=== PATIENT | male | born 2000 | race Caucasian/White ===

== ENCOUNTER 2018-03-24 00:28 | Emergency (ER) | payer SELFPAY ==
[2018-03-24] VITALS (8 sets, daily range): BP systolic 125–132; BP diastolic 69–74; PULSE 63–71; RESP 14–17; TEMP 36.7; O2SAT 97–100; BMI 22.0
--- NOTE | 2018-03-24 00:55 | ED.DCSUM_ITS ---
History of Present Illness Chief Complaint: Suicidal Informant: Patient, Family - mother Narrative: Patient has a long history of feeling depressed, mom states that he went to counseling a year or 2 ago for anger issues but he did not feel that he was getting anything out of the counseling so quit going. Now, anger is not as much the issue as depression and thoughts of suicide. The patient states he does not feel suicidal as much as he does not want to be alive, and since no one will k ill me, the only way to make that happen is to commit suicide, but I do not think I would do that. He does not have a plan. He has chronic insomnia, he has not slept for the past 2 nights or so, he states that it is not uncommon for him and randomly occurs, and typically has trouble getting to sleep because his mind is racing. He uses marijuana on occasion, is a smoker, and occasionally drinks alcohol but no other illicit substances. 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 Makenna, his mother got a notice that he was emotionally distressed, so she went to his home and found him in tears, with his hands in his hair, emotionally distressed, saying that he did not want to be around. The patient states that he does not want to be alive because the world sucks. He states he does not have any recollection of the events at his home makenna. He has no physical complaints at this time. Past Medical History - Allergies and Home Meds Allergies/Adverse Reactions: Allergies No Known Allergies Allergy (Verified 03/24/18 00:29) Primary Care Physician: NOT,DEFINED [NON-STAFF] - Past Medical History: None Lives: Alone Smoking Status: Current every day smoker Alcohol: Occasional Drugs: Marijuana Review of Systems General: Denies: Chills, Fever, Sweats Eyes: Denies: Visual changes - bilaterally, Diplopia ENT: Denies: Rhinorrhea, Sore throat Cardiovascular: Denies: Chest pain, Palpitations Respiratory: Denies: Dyspnea, Cough, Dyspnea on exertion Gastrointestinal: Reports: Abdominal pain - off and on chronically - periumbilical cramping/aching, mild, Vomiting - occasional x years, Diarrhea - occasional x years. Denies: Nausea, Melena, Hematochezia Genitourinary: Denies: Dysuria, Hematuria, Frequency Musculoskeletal: Denies: Neck pain, Back pain, Swelling, Extremity Pain Skin: Denies: Rash, Abscess Neurological: Denies: Headache, Weakness, Numbness Psych: Reports: Depression, Suicidal thoughts, Suicidal ideations. Denies: Anxiety Endocrine: Denies: Heat intolerance, Cold intolerance Hematologic: Denies: Easy bruising, Easy bleeding, Lymphadenopathy Allergy: Denies: Swelling of the mouth, Swelling of the tongue Physical Exam Vital Signs/Narrative: Vital Signs Temp Pulse Resp BP Pulse Ox 03/24/18 00:29 98.0 F 63 16 132/72 H 97 Inital Vital Signs reviewed: Yes General: Well nourished, Well developed Head: Normocephalic, Atraumatic Eyes: Perrl, EOMI. Negative for: Scleral icterus ENT: Moist mucous membranes, No rhinorrhea. Negative for: Nasal congestion, Sinus tenderness Neck: Supple, Nontender, No lymphadenopathy Cardiovascular: Regular rate, Regular rhythm, No murmurs Respiratory: No distress, CTA bilaterally, Chest nontender Abdomen: Soft, Nontender, Nondistended, Normal bowel sounds Back: Nontender, Normal Inspection Extremities: Nontender, No edema Skin: Normal color, No rash Neurological: Alert, Oriented x3, Cranial nerves II-XII grossly intact, Normal Strength, Normal Sensation Psychological: - - Appears insightful. No hallucinations or delusions. Suicidal - see HPI. Flat inappropriate affect compared with his description of his depression. Diagnostic/Tx/Re-eval Laboratory Tests 03/24/18 03/24/18 03/24/18 Range/Units 01:50 00:55 00:55 WBC 6.3 (4.4-11.0) K/mm3 RBC 4.71 (4.6-6.2) M/mm3 Hgb 14.5 (13.0-16.5) g/dl Hct 41.4 (40-54) % MCV 87.9 (80-94) fL MCH 30.8 (27.0-32.0) pg MCHC 35.0 (32-36) g/gl RDW 12.5 (11.6-14.6) % RDW Differential 40.4 (35.1-43.9) fl Plt Count 219 (150-450) K/mm3 MPV 10.4 (6.2-12.0) fl Immature Gran % (Auto) 0.200 (0.0-0.9) % Neut % (Auto) 50.6 (47-70) % Lymph % (Auto) 32.1 (19-41) % [place] % (Auto) 13.9 H (0-10) % Eos % (Auto) 2.7 (0-5) % Baso % (Auto) 0.5 (0-1) % Absolute Neuts (auto) 3.2 (2.0-7.7) X10^3/uL Absolute Lymphs (auto) 2.03 (0.83-4.51) X10^3/ul Total Counted Not Reportable Sodium (136-145) mmol/L Potassium (3.5-5.1) mmol/L Chloride (98-107) mmol/L Carbon Dioxide (21.0-32.0) mmol/L Anion Gap (5-15) BUN (7-18) mg/dL Creatinine (0.70-1.30) mg/dL Estim Creat Clear Calc ml/min Est GFR (MDRD) Af Amer (>60) mL/min Est GFR (MDRD) Non-Af (>60) mL/min BUN/Creatinine Ratio (10-20) RATIO Glucose (74-106) mg/dL Calcium (8.5-10.1) mg/dL Total Bilirubin (0.20-1.00) mg/dL AST (15-37) U/L ALT (16-61) U/L Alkaline Phosphatase (45-117) U/L Total Protein (6.4-8.2) g/dL Albumin (3.2-5.0) g/dL Globulin (2.2-4.2) g/dL Albumin/Globulin Ratio (0.9-2.4) RATIO TSH (0.358-3.74) uIU/mL Urine Opiates Screen NEGATIVE (< 300 ng/mL) Urine Methadone Screen NEGATIVE (< 300 ng/mL) Ur Barbiturates Screen NEGATIVE (< 200 ng/mL) Ur Phencyclidine Scrn NEGATIVE (< 25 ng/mL) Ur Amphetamines Screen NEGATIVE (<1000 ng/mL) U Methamphetamin-MDMA NEGATIVE (< 500 ng/mL) U Benzodiazepines Scrn NEGATIVE (< 200 ng/mL) Urine Cocaine Screen NEGATIVE (< 300 ng/mL) U Cannabinoids Screen POSITIVE H (< 50 ng/mL) Ur Drug Screen Comment Ethyl Alcohol < 3.0 mg/dL 03/24/18 Range/Units 00:55 WBC (4.4-11.0) K/mm3 RBC (4.6-6.2) M/mm3 Hgb (13.0-16.5) g/dl Hct (40-54) % MCV (80-94) fL MCH (27.0-32.0) pg MCHC (32-36) g/gl RDW (11.6-14.6) % RDW Differential (35.1-43.9) fl Plt Count (150-450) K/mm3 MPV (6.2-12.0) fl Immature Gran % (Auto) (0.0-0.9) % Neut % (Auto) (47-70) % Lymph % (Auto) (19-41) % [place] % (Auto) (0-10) % Eos % (Auto) (0-5) % Baso % (Auto) (0-1) % Absolute Neuts (auto) (2.0-7.7) X10^3/uL Absolute Lymphs (auto) (0.83-4.51) X10^3/ul Total Counted Sodium 141 (136-145) mmol/L Potassium 3.5 (3.5-5.1) mmol/L Chloride 108 H (98-107) mmol/L Carbon Dioxide 26.0 (21.0-32.0) mmol/L Anion Gap 7 (5-15) BUN 11 (7-18) mg/dL Creatinine 0.82 (0.70-1.30) mg/dL Estim Creat Clear Calc 155.14 ml/min Est GFR (MDRD) Af Amer 156 (>60) mL/min Est GFR (MDRD) Non-Af 129 (>60) mL/min BUN/Creatinine Ratio 13.5 (10-20) RATIO Glucose 90 (74-106) mg/dL Calcium 8.7 (8.5-10.1) mg/dL Total Bilirubin 0.80 (0.20-1.00) mg/dL AST 16 (15-37) U/L ALT 44 (16-61) U/L Alkaline Phosphatase 87 (45-117) U/L Total Protein 7.5 (6.4-8.2) g/dL Albumin 4.2 (3.2-5.0) g/dL Globulin 3.3 (2.2-4.2) g/dL Albumin/Globulin Ratio 1.3 (0.9-2.4) RATIO TSH 1.02 (0.358-3.74) uIU/mL Urine Opiates Screen (< 300 ng/mL) Urine Methadone Screen (< 300 ng/mL) Ur Barbiturates Screen (< 200 ng/mL) Ur Phencyclidine Scrn (< 25 ng/mL) Ur Amphetamines Screen (<1000 ng/mL) U Methamphetamin-MDMA (< 500 ng/mL) U Benzodiazepines Scrn (< 200 ng/mL) Urine Cocaine Screen (< 300 ng/mL) U Cannabinoids Screen (< 50 ng/mL) Ur Drug Screen Comment Ethyl Alcohol mg/dL - Medical Decision Making Labs are normal, toxicology is negative except for marijuana, which he admits to. He is medically cleared and crisis is contacted for evaluation in the emergency department. Crisis evaluated, they are concerned about him and think he should be transferred for further psychiatric evaluation, to a psychiatric hospital. During their interview, the patient stated that he could kill anybody at any given time. He did not specify anyone in particular that he premeditated harming. However, he has verbalized his desire to try to leave the emergency department. We have alerted security, redirected the patient, he is cooperative at this time. I have pink slipped him to the emergency department until he can be accepted for psychiatric admission. ED Disposition - Plan for ED Patient: Disposition: Acute Care Hospital - Other Chief Complaint: Suicidal Diagnosis: Major depression, Suicidal thoughts Referrals: NOT,DEFINED [NON-STAFF] -
[2018-03-24 01:00] LABS: Absolute Lymphocyte Count 2.03 X10^3/ul (0.83-4.51); Absolute Neutrophil Count 3.2 X10^3/uL (2.0-7.7); Basophil# 0.03 X10^3/uL; Basophil% 0.5 % (0-1); Eosinophil# 0.17 X10^3/uL; Eosinophils% 2.7 % (0-5); Hematocrit 41.4 % (40-54); Hemoglobin 14.5 g/dl (13.0-16.5); Lymphocyte # 2.03 X10^3/ul (4.0); Lymphocyte % 32.1 % (19-41); Mean Corpuscular Hgb 30.8 pg (27.0-32.0); Mean Corpuscular Volume 87.9 fL (80-94); Mean Platelet Vol. 10.4 fl (6.2-12.0); Monocyte# 0.88 X10^3/uL; Monocyte% 13.9 % (0-10); Neutrophil # 3.21 X10^3/uL (2.7-7.7); Neutrophil % 50.6 % (47-70); Platelet Count 219 K/mm3 (150-450); RBC Distribution Width CV 12.5 % (11.6-14.6); RBC Distribution Width SD 40.4 fl (35.1-43.9); Red Blood Count 4.71 M/mm3 (4.6-6.2); White Blood Count 6.3 K/mm3 (4.4-11.0)
[2018-03-24 01:01] LABS: POSITIVE COUNT NO; POSITIVE DIFFERENTIAL NO; POSITIVE MORPHOLOGY NO
[2018-03-24 01:46] LABS: ALB/GLOB Ratio 1.3 RATIO (0.9-2.4); AST(SGOT) 16 U/L (15-37); Alanine Aminotransfer ALT/SGPT 44 U/L (16-61); Albumin, Serum 4.2 g/dL (3.2-5.0); Alkaline Phosphatase 87 U/L (45-117); Anion Gap 7 (5-15); BUN 11 mg/dL (7-18); BUN/Creat Ratio 13.5 RATIO (10-20); Calcium,Total 8.7 mg/dL (8.5-10.1); Chloride 108 mmol/L (98-107); Creatinine, Serum 0.82 mg/dL (0.70-1.30); EST Glomerular Filtration Rate 129 mL/min (>60); Est Glom Filt Rate - Afr Amer 156 mL/min (>60); Estimated Creatinine Clearance 155.14 ml/min; Globulin 3.3 g/dL (2.2-4.2); Glucose 90 mg/dL (74-106); Potassium 3.5 mmol/L (3.5-5.1); Protein, Total 7.5 g/dL (6.4-8.2); Sodium Level 141 mmol/L (136-145); Thyroid Stim Hormone (TSH) 1.02 uIU/mL (0.358-3.74)
[2018-03-24 01:48] LABS: Alcohol, Blood (Medical)-Serum < 3.0 mg/dL
--- NOTE | 2018-03-24 02:04 | ED.RN ---
[facility] CONTACTED. CRISIS STAFF CALLED BACK WILL BE UP SOON POSSIBLE
[2018-03-24 02:07] LABS: Amphetamine Urine VISTA NEGATIVE (<1000 ng/mL); Barbiturate Urine VISTA NEGATIVE (< 200 ng/mL); Benzodiazepine Urine VISTA NEGATIVE (< 200 ng/mL); Cocaine Urine VISTA NEGATIVE (< 300 ng/mL); Ecstacy Urine VISTA NEGATIVE (< 500 ng/mL); Methadone Urine VISTA NEGATIVE (< 300 ng/mL); PCP Urine VISTA NEGATIVE (< 25 ng/mL); THC Urine VISTA POSITIVE (< 50 ng/mL); Vista UDS pH Range 6
--- NOTE | 2018-03-24 05:13 | CT_ITS ---
STUDY: CT BRAIN WITHOUT CONTRAST REASON FOR EXAM: Male, 17 years old. Depression and suicidal RADIATION DOSAGE (If Supplied By Facility): CTDIvol = ( 44.99 ) mGy, DLP = ( 829.85 ) mGycm TECHNIQUE: Transaxial CT imaging of the brain was performed without administration of intravenous contrast material. Individualized dose optimization techniques were used for this CT. COMPARISON: None. FINDINGS: Normal soft tissue structures. Normal calvarium. Normal size ventricles and extra-axial spaces for the patient's age. Normal white matter tracts of the cerebral hemispheres. Normal basal ganglia and thalami. Normal brainstem. Normal cerebellum. There is no intracranial hemorrhage. There are no findings of an acute ischemic infarction. Normal visualized paranasal sinuses. CT/Brain/Head without Contrast IMPRESSION: Normal unenhanced CT scan of the brain. Electronically Signed: Efren Ordoñez MD at 5:51 EST Tel , Service support ,
--- NOTE | 2018-03-24 10:42 | ED.RN ---
PER SANDI WITH CRISIS; IS REVIEWING CHART NOW AND WILL CONTACT US WHEN THEY ACCEPT OR DECLINE PT
--- NOTE | 2018-03-24 10:45 | ED.RN ---
MOTHER GIVEN UPDATE ON PT. STATUS IS [facility] IS REVIEWING HIS CASE AND WE ARE WAITING TO HEAR BACK
--- OUTSIDE RECORDS SUMMARY | 2018-05-17 21:59 | XMS RPT_ITS ---
:2000 Author Organization [facility] Care Team Providers Name Role Phone SHERINE TRUJILLO Attending Unavailable Primay Care Physicia, No Primary Care Unavailable PROBLEMS PROBLEMS No Problem Records FoundPROCEDURES PROCEDURES No Procedure Records FoundRESULTS RESULTS BRAIN/HEAD WITHOUT Observed: 03/24/2018 Status: F Source: [place] CONTRAST 5:14 AM [facility] [place] REPOSITORY [facility] Imaging Services [address] [place] [address] Brain/Head without Contrast MR#: [id number] Acct: [id number] Name: ILYA CARABALLO Rep #: [id number] : 2000 M 17 From: Efren Ordoñez MD PCP: Care Physician, No Primary Status: REG ER Study: Brain/Head without Contrast Date of Exam: 03/24/18 Exam# [id number] Ordering Dr: Sherine Trujillo MD STUDY: CT BRAIN WITHOUT CONTRAST REASON FOR EXAM: Male, 17 years old. Depression and suicidal RADIATION DOSAGE (If Supplied By Facility): CTDIvol = ( 44.99 ) mGy, DLP = ( 829.85 ) mGycm TECHNIQUE: Transaxial CT imaging of the brain was performed without administration of intravenous contrast material. Individualized dose optimization techniques were used for this CT. COMPARISON: None. FINDINGS: Normal soft tissue structures. Normal calvarium. Normal size ventricles and extra-axial spaces for the patient's age. Normal white matter tracts of the cerebral hemispheres. Normal basal ganglia and thalami. Normal brainstem. Normal cerebellum. There is no intracranial hemorrhage. There are no findings of an acute ischemic infarction. Normal visualized paranasal sinuses. CT/Brain/Head without Contrast IMPRESSION: Normal unenhanced CT scan of the brain. Electronically Signed: Efren Ordoñez MD at 5:51 EST Tel , Service support , CC: No Primary Care Physician; SHERINE TRUJILLO MD Electronic Gluing Machine Operator: Signed EMERGENCY DEPARTMENT Observed: 03/24/2018 Status: F Source: [place] SUMMARY 4:19 AM [facility] [place] REPOSITORY [facility] Medical Records Department [address] [place] [address] Emergency Department Summary 03/24/18 0051 MR#: [id number] Acct: [id number] Name: ILYA CARABALLO Rep #: [id number] : 2000 17 From: Sherine Trujillo MD PCP: Care Physician, No Primary Status: REG ER History of Present Illness Chief Complaint: Suicidal Informant: Patient, Family - mother Narrative: Patient has a long history of feeling depressed, mom states that he went to counseling a year or 2 ago for anger issues but he did not feel that he was getting anything out of the counseling so quit going. Now, anger is not as much the issue as depression and thoughts of suicide. The patient states he does not feel suicidal as much as he does not want to be alive, and since no one will kill me, the only way to make that happen is to commit suicide, but I do not think I would do that. He does not have a plan. He has chronic insomnia, he has not slept for the past 2 nights or so, he states that it is not uncommon for him and randomly occurs, and typically has trouble getting to sleep because his mind is racing. He uses marijuana on occasion, is a smoker, and occasionally drinks alcohol but no other illicit substances. 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 Tonight, his mother got a notice that he was emotionally distressed, so she went to his home and found him in tears, with his hands in his hair, emotionally distressed, saying that he did not want to be around. The patient states that he does not want to be alive because the world sucks. He states he does not have any recollection of the events at his home tonight. He has no physical complaints at this time. Past Medical History - Allergies and Home Meds Allergies/Adverse Reactions: Allergies No Known Allergies Allergy (Verified 03/24/18 00:29) Primary Care Physician: NOT,DEFINED [NON-STAFF] - Past Medical History: None Lives: Alone Smoking Status: Current every day smoker Alcohol: Occasional Drugs: Marijuana Review of Systems General: Denies: Chills, Fever, Sweats Eyes: Denies: Visual changes - bilaterally, Diplopia ENT: Denies: Rhinorrhea, Sore throat Cardiovascular: Denies: Chest pain, Palpitations Respiratory: Denies: Dyspnea, Cough, Dyspnea on exertion Gastrointestinal: Reports: Abdominal pain - off and on chronically - periumbilical cramping/aching, mild, Vomiting - occasional x years, Diarrhea - occasional x years. Denies: Nausea, Melena, Hematochezia Genitourinary: Denies: Dysuria, Hematuria, Frequency Musculoskeletal: Denies: Neck pain, Back pain, Swelling, Extremity Pain Skin: Denies: Rash, Abscess Neurological: Denies: Headache, Weakness, Numbness Psych: Reports: Depression, Suicidal thoughts, Suicidal ideations. Denies: Anxiety Endocrine: Denies: Heat intolerance, Cold intolerance Hematologic: Denies: Easy bruising, Easy bleeding, Lymphadenopathy Allergy: Denies: Swelling of the mouth, Swelling of the tongue Physical Exam Vital Signs/Narrative: Vital Signs 03/24/18 00:29 98.0 F 63 16 132/72 H 97 Inital Vital Signs reviewed: Yes General: Well nourished, Well developed Head: Normocephalic, Atraumatic Eyes: Perrl, EOMI. Negative for: Scleral icterus ENT: Moist mucous membranes, No rhinorrhea. Negative for: Nasal congestion, Sinus tenderness Neck: Supple, Nontender, No lymphadenopathy Cardiovascular: Regular rate, Regular rhythm, No murmurs Respiratory: No distress, CTA bilaterally, Chest nontender Abdomen: Soft, Nontender, Nondistended, Normal bowel sounds Back: Nontender, Normal Inspection Extremities: Nontender, No edema Skin: Normal color, No rash Neurological: Alert, Oriented x3, Cranial nerves II-XII grossly intact, Normal Strength, Normal Sensation Psychological: - - Appears insightful. No hallucinations or delusions. Suicidal - see HPI. Flat inappropriate affect compared with his description of his depression. Diagnostic/Tx/Re-eval Laboratory Tests WBC 6.3 (4.4-11.0) K/mm3 - Medical Decision Making Labs are normal, toxicology is negative except for marijuana, which he admits to. He is medically cleared and crisis is contacted for evaluation in the emergency department. Crisis evaluated, they are concerned about him and think he should be transferred for further psychiatric evaluation, to a psychiatric hospital. During their interview, the patient stated that he could kill anybody at any given time. He did not specify anyone in particular that he premeditated harming. However, he has verbalized his desire to try to leave the emergency department. We have alerted security, redirected the patient, he is cooperative at this time. I have pink slipped him to the emergency department until he can be accepted for psychiatric admission. ED Disposition - Plan for ED Patient: Disposition: Acute Care Hospital - Other Chief Complaint: Suicidal Diagnosis: Major depression, Suicidal thoughts Referrals: NOT,DEFINED [NON-STAFF] - What to do if you have Problems For any increased pain, shortness of breath, bleeding, nausea or vomiting, chest pain, or any unexpected problems, contact your Primary Care Provider. Call [facility] ([phone]) or report to the closest Emergency Room. Call 911 if necessary. 03/24/18 0419 <Electronically signed by Sherine Trujillo MD> Date Sherine Trujillo MD Cosigner Signature (If Indicated): Date CC: No Primary Care Physician URINE DRUG SCREEN Collected: 03/24/2018 Status: F Source: [place] ([place]) 1:50 AM [facility] REPOSITORY TYPE CODE TESTS RESULT OUT OF RANGE REFERENCE UNITS LAB L505.0075 TO BE Normal CONFIRMED Result Comment: CONFIRMATORY TESTING FOR ALL POSITIVE URINE DRUG SCREEN RESULTS WILL ONLY BE SENT OUT UPON PHYSICIAN ORDER. VISTA Urine Drug Screen methods provide only preliminary analytical test results. A more specific alternate chemical method must be used in order to obtain a confirmed analytical result. Gas chromatography/mass spectrometery (GC/MS) is the preferred confirmatory method. Clinical consideration and professional judgement should be applied to any drug of abuse test result, particularly when preliminary positive results are used. URINE TCA TESTING MUST BE ORDERED SEPARATELY. USE TEST MNEMONIC: [facility] LAB L505.5005 VISTA UDS PH 6 Normal LAB L505.5015 <1000 ng/mL AMPHETAMINES Normal NEGATIVE LAB L505.5025 < 200 ng/mL BARBITIURATES Normal NEGATIVE LAB L505.5035 < 200 ng/mL BENZODIAZIPINE Normal NEGATIVE LAB L505.5045 < 300 ng/mL COCAINE Normal NEGATIVE LAB L505.5055 < 500 ng/mL ECSTACY Normal NEGATIVE LAB L505.5065 < 300 ng/mL METHADONE Normal NEGATIVE LAB L505.5075 < 300 ng/mL OPIATES Normal NEGATIVE LAB L505.5085 < 25 ng/mL PCP Normal NEGATIVE LAB L505.5095 < 50 High ng/mL THC POSITIVE Performed By: #### L505.5000 #### [facility] [address] [place], [address] CBC W/DIFF, AUTOMATED Collected: 03/24/2018 Status: F Source: [place] 12:55 AM [facility] REPOSITORY TYPE CODE TESTS RESULT OUT OF RANGE REFERENCE UNITS LAB L100.1000 4.4-11.0 K/mm3 Normal WBC 6.3 LAB L100.1200 4.6-6.2 M/mm3 Normal RBC 4.71 LAB L100.1300 13.0-16.5 g/dl Normal HGB 14.5 LAB L100.1400 40-54 % Normal HCT 41.4 LAB L100.1500 80-94 fL Normal MCV 87.9 LAB L100.1600 27.0-32.0 pg Normal MCH 30.8 LAB L100.1700 32-36 g/gl Normal MCHC 35.0 LAB L100.1810 11.6-14.6 % Normal RDW CV 12.5 LAB L100.1820 35.1-43.9 fl Normal RDW SD 40.4 LAB L100.1900 150-450 K/mm3 Normal PLT 219 LAB L100.2000 6.2-12.0 fl Normal MPV 10.4 LAB L100.2100 47-70 % Normal NEUT% 50.6 LAB L100.2200 19-41 % Normal LY% 32.1 LAB L100.2300 0-10 % High MONO% 13.9 LAB L100.2400 0-5 % Normal EO% 2.7 LAB L100.2500 0-1 % Normal BASO% 0.5 LAB L100.2550 0.0-0.9 % Normal IM GRAN % 0.200 Result Comment: IG% - Immature Granulocytes (promyelocytes, myelocytes and metamyelocytes) > 1% indicates that a LEFT SHIFT is Present. LAB L100.2620 2.0-7.7 X10 3/uL Normal Absolute Neut 3.2 LAB L100.2720 0.83-4.51 X10 3/ul Normal Absolute Lymph 2.03 Performed By: #### L100.0100 #### [facility] [address] [place], [address] COMPREHENSIVE METABOLIC Collected: 03/24/2018 Status: F Source: [facility] 12:55 AM [facility] REPOSITORY TYPE CODE TESTS RESULT OUT OF RANGE REFERENCE UNITS LAB L501.0100 74-106 mg/dL Normal GLU 90 Result Comment: Please note revised GLUCOSE reference range effective 2017. LAB L501.1000 7-18 mg/dL Normal BUN 11 LAB L501.1100 0.70-1.30 mg/dL Normal CREAT,SERUM 0.82 Result Comment: The validity of the calculated GFR AND GFRAA in patients over 70 years has not been determined. Clinical correlation is essential. LAB L501.1110 >60 mL/min Normal EST GFR 129 Result Comment: Non- GFR Calc LAB L501.1115 >60 mL/min Normal EST GFR - AA 156 Result Comment: GFR Calc LAB L501.1255 ml/min Normal Estimated CRCL 155.14 LAB L501.1300 10-20 RATIO BUN/CRE Normal 13.5 LAB L501.1500 6.4-8. g/dL 2 T PROT Normal 7.5 LAB L501.1800 3.2-5. g/dL 0 ALB Normal 4.2 LAB L501.1950 2.2-4. g/dL 2 GLOB Normal 3.3 LAB L501.2000 0.9-2. RATIO 4 A/G Normal 1.3 LAB L501.2200 8.5-10 mg/dL .1 CA Normal 8.7 LAB L501.4100 15-37 U/L AST Normal 16 LAB L501.4305 45-117 U/L ALK P Normal 87 LAB L501.4405 16-61 U/L ALT Normal 44 LAB L501.4600 0.20-1 mg/dL .00 T BILI Normal 0.80 LAB L501.5300 136-14 mmol/L 5 NA Normal 141 LAB L501.5600 3.5-5. mmol/L 1 K Normal 3.5 LAB L501.5900 98-107 mmol/L High CL 108 LAB L501.6100 21.0-3 mmol/L 2.0 CO2 Normal 26.0 LAB L501.6200 5-15 GAP Normal 7 Performed By: #### L500.4050, L501.9520 #### [facility] [address] [place], [place], [id number] THYROID STIM HORMONE Collected: 03/24/2018 Status: F Source: [place] ([facility]) 12:55 AM [facility] REPOSITORY TYPE CODE TESTS RESULT OUT OF RANGE REFERENCE UNITS LAB L501.9520 0.358-3.74 uIU/mL Normal TSH 1.02 Performed By: #### L500.4050, L501.9520 #### [facility] [address] [place], [place], [id number] ALCOHOL, BLOOD Collected: 03/24/2018 Status: F Source: [place] (MEDICAL)-SERUM 12:55 AM [facility] REPOSITORY TYPE CODE TESTS RESULT OUT OF RANGE REFERENCE UNITS LAB L501.9100 mg/dL Normal SERUM < 3.0 ETOH Result Comment: The serum:whole blood ethanol ratio is approximately 1.14 and varies slightly with hematocrit. Medical Alcohol reference interval and critical value in non-tolerant individuals; 50 - 100 Impairment 100 Intoxication 100 - 250 Severe Poisoning 250 - 400 Deep/possible fatal coma Performed By: #### L501.9100 #### [facility] [address] [place], [place], [id number] ALLERGIES ALLERGIES DATE TYPE / CODE NAME / CODE REACTION SEVERITY SOURCE 03/24/2018 Drug No Known Unknown [facility] Allergy/4160 Allergies/F00 Hospital 77137(SNOMED [id number](RXNOR Repository CT) M) ENCOUNTERS ENCOUNTERS ADMIT/DISCHARGE ACCOUNT ADMITTING ENCOUNTER LOCATION SOURCE NUMBER CLASS 03/24/2018/ [id number] Emergency [address] ing:ED Repository PAYERS PAYERS ENCOUNTER GUARANTOR PAYER SUBSCRIBER SOURCE 03/24/2018 CARAB[place]O [id number] Primary [facility] Insurance:SELF PAY [facility] [address] [place] [id number] [phone] Number: Effective Repository [phone] () Date:2018-03-24
== END 2018-03-24 11:55 | disposition short-term general hospital (02) ==
PROVIDERS: Emergency Provider Emergency Medicine
DX: R45.851 Suicidal ideations (principal); F32.9 Major depressive disorder, single episode, unspecified; F17.200 Nicotine dependence, unspecified, uncomplicated; F12.90 Cannabis use, unspecified, uncomplicated
CPT/HCPCS: 70450; 80053; 80307; 80320; 84443; 85025; 99284; G0480